=== PATIENT | female | born 1965 | race Caucasian/White ===

== ENCOUNTER 2017-12-07 10:00 | Outpatient (CLI) | payer OTHER ==
[~2017-12-07] VITALS: Ht 165.1 cm; Wt 81.6 kg
[2017-12-07] MEDS ORDERED: LISD30CA3 PO (10:34)
[2017-12-07] MEDS ORDERED: MONT10TA24 PO (10:34)
== END 2017-12-07 13:24 ==
LOC: PREOP 10:00
PROVIDERS: ATTEND Surgery
DX: Z01.818 Encounter for other preprocedural examination (principal); Z12.11 Encounter for screening for malignant neoplasm of colon

== ENCOUNTER 2017-12-14 11:52 | Day surgery (SDC) | payer OTHER ==
[~2017-12-14 11:52] MED LIST: LISD30CA3 PO; MONT10TA24 PO
--- OUTSIDE RECORDS SUMMARY | 2017-12-14 11:55 | XMS REPORT ---
Author Author REGINALD STARR Organization [facility] Address [address] [place] [address] Care Team Providers Care Sales Technician Name Role Phone REGINALD STARR Unavailable PROBLEMS Type Condition ICD9-CM Code [id number] Code Onset Dates Condition Status SNOMED Code Problem ADD (attention deficit disorder) F90.0 Active [id number] ALLERGIES Substance Reaction Event Type Date Status N.K.D.A. Unknown Non Drug Allergy May, Unknown SOCIAL HISTORY No smoking Hx information available PLAN OF CARE Activity Details Follow Up 3 Months, prn Reason: VITAL SIGNS Height 65 in 2016-06-12 Weight 186.4 lbs 2016-06-12 Temperature 98.5 degrees Fahrenheit 2016-06-12 Heart Rate 82 bpm 2016-06-12 Respiratory Rate 20 2016-06-12 BMI 31.02 kg/m2 2016-06-12 Blood pressure systolic 118 mmHg 2016-06-12 Blood pressure diastolic 82 mmHg 2016-06-12 MEDICATIONS Medication Instructions Dosage Frequency Start Date End Date Duration Status Amphetamine-Dextroamphetamine 20 mg Orally 2 times a day TAKE ONE TABLET BY MOUTH AT 8:00AM AND ONE TABLET AT NOON 12h May, 28 days Active ZyrTEC 10 mg take 1 tablet (10 mg) by oral route once daily Oct, Active Xanax 0.25 MG Orally 2 times a day 1 tablet 12h Oct, 10 days Active Adderall XR 30 MG Orally Once a day 1 capsule in the morning 24h May, Active Lisinopril 10 MG Active RESULTS Name Result Date Reference Range [employer] 2016-06-12 PROCEDURES Procedure Date Ordered Related Diagnosis Body Site No Charge Jun 12, 2016 Office Visit, Est Pt., Level 3 Jun 12, 2016 IMMUNIZATIONS No Known Immunizations
--- OUTSIDE RECORDS SUMMARY | 2017-12-14 11:55 | XMS REPORT ---
Author REGINALD Quach [facility] e[employer] Address Unknown Phone Unavailable Care Team Providers Care Licensed Tax Consultant Name Role Phone REGINALD STARR Unavailable Allergies No Known Allergies Problems Problem Type Condition Code Onset Dates Condition Status Problem ADD (attention deficit disorder) F90.0 Active Medications Medication Code System Code Instructions Start Date End Date Status Dosage Amphetamine-Dextroamphetamine [facility] [address]-24 20 mg Orally one in the am and one at noon Dec 25, 2015 1 tablet in the morning Results No Known Results Summary Purpose eClinicalWorks Submission
--- OUTSIDE RECORDS SUMMARY | 2017-12-14 11:55 | XMS REPORT ---
Author Author REGINALD STARR [facility] Address [address] [place] [address] Care Team Providers Care Transit Vehicle Inspector Name Role Phone REGINALD STARR Unavailable PROBLEMS Type Condition ICD9-CM Code [id number] Code Onset Dates Condition Status SNOMED Code Problem ADD (attention deficit disorder) F90.0 Active [id number] ALLERGIES No Information SOCIAL HISTORY Never Assessed PLAN OF CARE VITAL SIGNS MEDICATIONS Medication Instructions Dosage Frequency Start Date End Date Duration Status Adderall XR 30 MG Orally Once a day 1 capsule in the morning 24h September, 28 days Active RESULTS No Results PROCEDURES No Known procedures IMMUNIZATIONS No Known Immunizations MEDICAL (GENERAL) HISTORY Type Description Date Medical History pulmonary embolism 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 (PT will call and inform us with the name) Medical History HIgh blood pressure Surgical History cholecystectomy Surgical History section x2 Surgical History hysterectomy
--- OUTSIDE RECORDS SUMMARY | 2017-12-14 11:55 | XMS REPORT ---
Author Author REGINALD STARR [facility] Address [address] [place] [address] Care Team Providers Care Material Control Supervisor Name Role Phone REGINALD STARR Unavailable PROBLEMS Type Condition ICD9-CM Code [id number] Code Onset Dates Condition Status SNOMED Code Problem ADD (attention deficit disorder) F90.0 Active [id number] ALLERGIES Unknown Allergies SOCIAL HISTORY No smoking Hx information available PLAN OF CARE VITAL SIGNS MEDICATIONS Medication Instructions Dosage Frequency Start Date End Date Duration Status Amphetamine-Dextroamphetamine 20 mg Orally one in the am and one at noon 1 tablet in the morning Dec, Active RESULTS No Results PROCEDURES No Known procedures IMMUNIZATIONS No Known Immunizations
--- OUTSIDE RECORDS SUMMARY | 2017-12-14 11:55 | XMS REPORT ---
Author REGINALD Quach Organization [employer] Address Unknown Phone Unavailable Care Team Providers Care Middleware Consultant Name Role Phone REGINALD STARR Unavailable Allergies No Known Allergies Problems Problem Type Condition Code Onset Dates Condition Status Problem ADD (attention deficit disorder) F90.0 Active Medications Medication Code System Code Instructions Start Date End Date Status Dosage Amphetamine-Dextroamphetamine [facility] [address]-03 20 mg Orally one in the am and one at noon Dec 25, 2015 1 tablet in the morning Xanax [facility] [address]-27 0.25 MG Orally 2 times a day November 17, 2014 1 tablet Results No Known Results Summary Purpose eClinicalWorks Submission
--- OUTSIDE RECORDS SUMMARY | 2017-12-14 11:56 | XMS REPORT ---
Author Author REGINALD STARR [facility] Address [address] [place] [address] Care Team Providers Care Rn Ent Name Role Phone REGINALD STARR Unavailable PROBLEMS Type Condition ICD9-CM Code [id number] Code Onset Dates Condition Status SNOMED Code Problem ADD (attention deficit disorder) F90.0 Active [id number] ALLERGIES No Information SOCIAL HISTORY Never Assessed PLAN OF CARE VITAL SIGNS MEDICATIONS Medication Instructions Dosage Frequency Start Date End Date Duration Status Adderall XR 30 MG Orally Once a day 1 capsule in the morning 24h Jul, 28 days Active RESULTS No Results PROCEDURES [...]
--- OUTSIDE RECORDS SUMMARY | 2017-12-14 11:56 | XMS REPORT ---
Author REGINALD Quach [facility] e[employer] Address Unknown Phone Unavailable Care Team Providers Care Personal Companion Name Role Phone REGINALD STARR CP Unavailable Allergies No Known Allergies Problems Problem Type Condition Code Onset Dates Condition Status Problem ADD (attention deficit disorder) F90.0 Active Medications No Known Medications Results No Known Results Summary Purpose eClinicalWorks Submission
--- OUTSIDE RECORDS SUMMARY | 2017-12-14 11:56 | XMS REPORT ---
Author Author REGINALD STARR [facility] Address [address] [place] [address] Care Team Providers Care Hammer Driver Name Role Phone REGINALD STARR Unavailable PROBLEMS Type Condition ICD9-CM Code [id number] Code Onset Dates Condition Status SNOMED Code Problem ADD (attention deficit disorder) F90.0 Active [id number] ALLERGIES Unknown Allergies SOCIAL HISTORY No smoking Hx information available PLAN OF CARE VITAL SIGNS MEDICATIONS Medication Instructions Dosage Frequency Start Date End Date Duration Status Amphetamine-Dextroamphetamine 20 mg Orally 2 times a day TAKE ONE TABLET BY MOUTH AT 8:00AM AND ONE TABLET AT NOON 12h May, 30 Active RESULTS No Results PROCEDURES No Known procedures IMMUNIZATIONS No Known Immunizations
--- OUTSIDE RECORDS SUMMARY | 2017-12-14 11:57 | XMS REPORT | Continuity of Care Document ---
Author Author [facility] Address Unknown Phone Unavailable Allergies Active Description Code Type Severity Reaction Onset Reported/Identified Relationship to Patient Clinical Status Yes No Known Drug Allergies [id number] Drug Allergy Unknown N/A 03/28/2015 Medications There is no data. Problems Date Dx Coded Attending Type Code Diagnosis Diagnosed By 08/16/2010 461.9 SINUSITIS ACUTE 08/16/2010 477.0 ALLERGIC RHINITIS DUE TO POLLEN 08/16/2010 461.9 SINUSITIS ACUTE 08/16/2010 477.0 ALLERGIC RHINITIS DUE TO POLLEN 08/16/2010 461.9 SINUSITIS ACUTE 08/16/2010 477.0 ALLERGIC RHINITIS DUE TO POLLEN 08/16/2010 461.9 SINUSITIS ACUTE 08/16/2010 477.0 ALLERGIC RHINITIS DUE TO POLLEN 08/16/2010 461.9 SINUSITIS ACUTE 08/16/2010 477.0 ALLERGIC RHINITIS DUE TO POLLEN 08/16/2010 LUIS DO, MODESTA K 461.9 SINUSITIS ACUTE 08/16/2010 LUIS DO, MODESTA K 477.0 ALLERGIC RHINITIS DUE TO POLLEN 08/16/2010 LUIS DO, MODESTA K 461.9 SINUSITIS ACUTE 08/16/2010 LUIS DO, MODESTA K 477.0 ALLERGIC RHINITIS DUE TO POLLEN 08/16/2010 CHRISTIAN INVESTIGATIVE ANALYST, HIRAM R 461.9 SINUSITIS ACUTE 08/16/2010 CHRISTIAN INVESTIGATIVE ANALYST, HIRAM R 477.0 ALLERGIC RHINITIS DUE TO POLLEN 08/16/2010 CHRISTIAN INVESTIGATIVE ANALYST, HIRAM R 461.9 SINUSITIS ACUTE 08/16/2010 CHRISTIAN INVESTIGATIVE ANALYST, HIRAM R 477.0 ALLERGIC RHINITIS DUE TO POLLEN 08/16/2010 CHRISTIAN INVESTIGATIVE ANALYST, HIRAM R 461.9 SINUSITIS ACUTE 08/16/2010 CHRISTIAN INVESTIGATIVE ANALYST, HIRAM R 477.0 ALLERGIC RHINITIS DUE TO POLLEN 08/16/2010 CHRISTIAN INVESTIGATIVE ANALYST, HIRAM R 461.9 SINUSITIS ACUTE 08/16/2010 CHRISTIAN INVESTIGATIVE ANALYST, HIRAM R 477.0 ALLERGIC RHINITIS DUE TO POLLEN 08/16/2010 CHRISTIAN INVESTIGATIVE ANALYST, HIRAM R 461.9 SINUSITIS ACUTE 08/16/2010 CHRISTIAN INVESTIGATIVE ANALYST, HIRAM R 477.0 ALLERGIC RHINITIS DUE TO POLLEN 08/16/2010 JAYSON INVESTIGATIVE ANALYSTCHINMAY ChanNDA S 461.9 SINUSITIS ACUTE 08/16/2010 JAYSON INVESTIGATIVE ANALYST, LIZY S 477.0 ALLERGIC RHINITIS DUE TO POLLEN 04/07/2012 611.72 BREAST LUMP OR MASS 04/07/2012 611.72 BREAST LUMP OR MASS 04/07/2012 611.72 BREAST LUMP OR MASS 04/07/2012 611.72 BREAST LUMP OR MASS 04/07/2012 611.72 BREAST LUMP OR MASS 04/07/2012 LUIS DO, MODESTA K 611.72 BREAST LUMP OR MASS 04/07/2012 LUIS DO, MODESTA K 611.72 BREAST LUMP OR MASS 04/07/2012 CHRISTIAN INVESTIGATIVE ANALYST, HIRAM R 611.72 BREAST LUMP OR MASS 04/07/2012 CHRISTIAN INVESTIGATIVE ANALYST, HIRAM R 611.72 BREAST LUMP OR MASS 04/07/2012 CHRISTIAN INVESTIGATIVE ANALYST, HIRAM R 611.72 BREAST LUMP OR MASS 04/07/2012 CHRISTIAN INVESTIGATIVE ANALYST, HIRAM R 611.72 BREAST LUMP OR MASS 04/07/2012 CHRISTIAN INVESTIGATIVE ANALYST, HIRAM R 611.72 BREAST LUMP OR MASS 04/07/2012 JAYSON INVESTIGATIVE ANALYSTCHINMAY ChanNDA S 611.72 BREAST LUMP OR MASS 05/21/2012 473.9 SINUSITIS ( CHRONIC) 05/21/2012 784.91 POSTNASAL DRIP 05/21/2012 473.9 SINUSITIS ( CHRONIC) 05/21/2012 784.91 POSTNASAL DRIP 05/21/2012 473.9 SINUSITIS ( CHRONIC) 05/21/2012 784.91 POSTNASAL DRIP 05/21/2012 473.9 SINUSITIS ( CHRONIC) 05/21/2012 784.91 POSTNASAL DRIP 05/21/2012 473.9 SINUSITIS ( CHRONIC) 05/21/2012 784.91 POSTNASAL DRIP 05/21/2012 LUIS DO MODESTA K 473.9 SINUSITIS (CHRONIC) 05/21/2012 LUIS DO MODESTA K 784.91 POSTNASAL DRIP 05/21/2012 MODESTA LUIS DO K 473.9 SINUSITIS (CHRONIC) 05/21/2012 MODESTA LUIS DO K 784.91 POSTNASAL DRIP 05/21/2012 CHRISTIAN INVESTIGATIVE ANALYST, HIRAM R 473.9 SINUSITIS (CHRONIC) 05/21/2012 CHRISTIAN INVESTIGATIVE ANALYST, HIRAM R 784.91 POSTNASAL DRIP 05/21/2012 CHRISTIAN INVESTIGATIVE ANALYST, HIRAM R 473.9 SINUSITIS (CHRONIC) 05/21/2012 CHRISTIAN INVESTIGATIVE ANALYST, HIRAM R 784.91 POSTNASAL DRIP 05/21/2012 CHRISTIAN INVESTIGATIVE ANALYST, HIRAM R 473.9 SINUSITIS (CHRONIC) 05/21/2012 CHRISTIAN INVESTIGATIVE ANALYST, HIRAM R 784.91 POSTNASAL DRIP 05/21/2012 CHRISTIAN INVESTIGATIVE ANALYST, HIRAM R 473.9 SINUSITIS (CHRONIC) 05/21/2012 CHRISTIAN INVESTIGATIVE ANALYST, HIRAM R 784.91 POSTNASAL DRIP 05/21/2012 CHRISTIAN INVESTIGATIVE ANALYST, HIRAM R 473.9 SINUSITIS (CHRONIC) 05/21/2012 CHRISTIAN INVESTIGATIVE ANALYST, HIRAM R 784.91 POSTNASAL DRIP 07/13/2012 V19.6 FAMILY HISTORY OF ALLERGIC DISORDERS 07/13/2012 V19.6 FAMILY HISTORY OF ALLERGIC DISORDERS 07/13/2012 V19.6 FAMILY HISTORY OF ALLERGIC DISORDERS 07/13/2012 V19.6 FAMILY HISTORY OF ALLERGIC DISORDERS 07/13/2012 MODESTA LUIS DO K V19.6 FAMILY HISTORY OF ALLERGIC DISORDERS 07/13/2012 MODESTA LUIS DO K V19.6 FAMILY HISTORY OF ALLERGIC DISORDERS 07/13/2012 CHRISTIAN WALLACE HIRAM R V19.6 FAMILY HISTORY OF ALLERGIC DISORDERS 07/13/2012 CHRISTIAN WALLACE, HIRAM R V19.6 FAMILY HISTORY OF ALLERGIC DISORDERS 07/13/2012 CHRISTIAN AMEZCUAN, HIRAM R V19.6 FAMILY HISTORY OF ALLERGIC DISORDERS 07/13/2012 CHRISTIAN WALLACE HIRAM R V19.6 FAMILY HISTORY OF ALLERGIC DISORDERS 07/13/2012 CHRISTIAN WALLACE, HIRAM R V19.6 FAMILY HISTORY OF ALLERGIC DISORDERS 11/12/2012 729.5 PAIN IN LIMB 11/12/2012 729.5 PAIN IN LIMB 11/12/2012 729.5 PAIN IN LIMB 11/12/2012 MODESTA LUIS DO K 729.5 PAIN IN LIMB 11/12/2012 JOSE LUIS DOA K 729.5 PAIN IN LIMB 11/12/2012 CHRISTIAN INVESTIGATIVE ANALYST, HIRAM R 729.5 PAIN IN LIMB 11/12/2012 CHRISTIAN INVESTIGATIVE ANALYST, HIRAM R 729.5 PAIN IN LIMB 11/12/2012 CHRISTIAN INVESTIGATIVE ANALYST, HIRAM R 729.5 PAIN IN LIMB 11/12/2012 CHRISTINA INVESTIGATIVE ANALYST, HIRAM R 729.5 PAIN IN LIMB 11/12/2012 CHRISTIAN INVESTIGATIVE ANALYST, HIRAM R 729.5 PAIN IN LIMB 12/10/2012 729.4 PLANTAR FASCIITIS 12/10/2012 729.4 PLANTAR FASCIITIS 12/10/2012 JOSE LUIS DOA K 729.4 PLANTAR FASCIITIS 12/10/2012 LUIS DO MODESTA K 729.4 PLANTAR FASCIITIS 12/10/2012 CHRISTIAN INVESTIGATIVE ANALYST, HIRAM R 729.4 PLANTAR FASCIITIS 12/10/2012 CHRISTIAN INVESTIGATIVE ANALYST, HIRAM R 729.4 PLANTAR FASCIITIS 12/10/2012 CHRISTIAN INVESTIGATIVE ANALYST HIRAM R 729.4 PLANTAR FASCIITIS 12/10/2012 CHRISTIAN INVESTIGATIVE ANALYST HIRAM R 729.4 PLANTAR FASCIITIS 12/10/2012 CHRISTIAN INVESTIGATIVE ANALYST, HIRAM R 729.4 PLANTAR FASCIITIS 04/12/2013 JOSE LUIS DOA K 719.47 PAIN IN JOINT INVOLVING ANKLE AND FOOT 04/12/2013 JOSE LUIS DOA K 719.47 PAIN IN JOINT INVOLVING ANKLE AND FOOT 04/12/2013 CHRISTIAN INVESTIGATIVE ANALYST HIRAM R 719.47 PAIN IN JOINT INVOLVING ANKLE AND FOOT 04/12/2013 CHRISTIAN INVESTIGATIVE ANALYST HIRAM R 719.47 PAIN IN JOINT INVOLVING ANKLE AND FOOT 04/12/2013 CHRISTIAN INVESTIGATIVE ANALYST HIRAM R 719.47 PAIN IN JOINT INVOLVING ANKLE AND FOOT 04/12/2013 CHRISTIAN INVESTIGATIVE ANALYST HIRAM R 719.47 PAIN IN JOINT INVOLVING ANKLE AND FOOT 04/12/2013 CHRISTIAN INVESTIGATIVE ANALYST HIRAM R 719.47 PAIN IN JOINT INVOLVING ANKLE AND FOOT 05/13/2013 JOSE LUIS DOA K 726.79 TENDONITIS PERONEAL 05/13/2013 JOSE LUIS DOA K 845.03 SPRAIN LAT ANKLE 05/13/2013 CHRISTIAN AMEZCUAN HIRAM R 726.79 TENDONITIS PERONEAL 05/13/2013 CHRISTIAN INVESTIGATIVE ANALYST HIRAM R 845.03 SPRAIN LAT ANKLE 05/13/2013 CHRISTIAN INVESTIGATIVE ANALYST, HIRAM R 726.79 TENDONITIS PERONEAL 05/13/2013 CHRISTIAN INVESTIGATIVE ANALYST, HIRAM R 845.03 SPRAIN LAT ANKLE 05/13/2013 CHRISTIAN INVESTIGATIVE ANALYST, HIRAM R 726.79 TENDONITIS PERONEAL 05/13/2013 CHRISTIAN INVESTIGATIVE ANALYST, HIRAM R 845.03 SPRAIN LAT ANKLE 05/13/2013 CHRISTIAN INVESTIGATIVE ANALYST, HIRAM R 726.79 TENDONITIS PERONEAL 05/13/2013 CHRISTIAN INVESTIGATIVE ANALYST, HIRAM R 845.03 SPRAIN LAT ANKLE 05/13/2013 CHRISTIAN INVESTIGATIVE ANALYST, HIRAM R 726.79 TENDONITIS PERONEAL 05/13/2013 CHRISTIAN INVESTIGATIVE ANALYST, HIRAM R 845.03 SPRAIN LAT ANKLE 06/24/2013 CHRISTIAN INVESTIGATIVE ANALYST, HIRAM R 487.1 INFLUENZA 06/24/2013 CHRISTIAN INVESTIGATIVE ANALYST, HIRAM R 487.1 INFLUENZA 06/24/2013 CHRISTIAN INVESTIGATIVE ANALYST, HIRAM R 487.1 INFLUENZA 06/24/2013 CHRISTIAN INVESTIGATIVE ANALYST, HIRAM R 487.1 INFLUENZA 03/07/2014 CHRISTIAN INVESTIGATIVE ANALYST, HIRAM R 724.2 LUMBAGO/ LOW BACK PAIN 03/07/2014 CHRISTIAN INVESTIGATIVE ANALYST, HIRAM R 786.50 CHEST PAIN 03/07/2014 CHRISTIAN INVESTIGATIVE ANALYST, HIRAM R V12.55 PERSONAL HISTORY OF PULMONARY EMBOLISM 03/19/2015 JORGE NICHOLSON APRN Ot Z12.31 03/21/2015 DOUGIE CLARK MD Ot R92.8 03/22/2015 JORGE NICHOLSON APRN Ot Z12.31 03/22/2015 DOUGIE CLARK MD Ot R92.8 03/26/2015 FRANTZ HICKMAN MD Ot I26.99 03/26/2015 FRANTZ HICKMAN MD Ot R06.09 03/26/2015 FRANTZ HICKMAN MD Ot R07.89 03/26/2015 FRANTZ HICKMAN MD Ot R53.83 04/05/2015 FRANTZ HICKMAN MD Ot I26.99 04/05/2015 FRANTZ HICKMAN MD Ot R06.09 04/05/2015 FRANTZ HICKMAN MD Ot R07.89 04/05/2015 FRANTZ HICKMAN MD Ot R53.83 04/06/2015 LANDEN PA, ASHLYN K Ot I26.99 04/06/2015 LANDEN PA, ASHLYN Sky Ot R06.09 04/06/2015 LANDEN PA, ASHLYN K Ot R07.89 04/06/2015 LANDEN PA, ASHLYN K Ot Z82.3 04/11/2015 MARYLOU PALACIOS, FRANTZ Dang Ot I26.99 04/11/2015 MARYLOU PALACIOS, FRANTZ Dang Ot R06.09 04/11/2015 MARYLOU PALACIOS, FRANTZ Dang Ot R07.89 04/11/2015 MARYLOU PALACIOS, FRANTZ Dang Ot R53.83 04/25/2015 LANDEN PA, ASHLYN K Ot I26.99 04/25/2015 LANDEN PA, ASHLYN Swanson Ot R06.09 04/25/2015 LANDEN PA, ASHLYN Sky Ot R07.89 04/25/2015 LANDEN PA, ASHLYN Swanson Ot Z82.3 05/10/2015 CHRISSY PALACIOS, ROSAURA Ot I26.99 07/15/2015 CHRISSY PALACIOS, ROSAURA Ot I26.99 07/15/2015 CHRISSY PALACIOS, ROSAURA Ot R63.5 ABNORMAL WEIGHT GAIN 07/15/2015 CHRISSY PALACIOS, ROSAURA Ot R79.82 ELEVATED C-REACTIVE PROTEIN (CRP) 07/15/2015 CHRISSY PALACIOS, ROSAURA Ot Z86.711 PERSONAL HISTORY OF PULMONARY EMBOLISM 08/28/2015 JORGE NICHOLSON APRN Ot Z12.31 08/28/2015 DOUGIE CLARK MD Ot R92.8 08/28/2015 MARYLOU PALCAIOS, FRANTZ Dang Ot I26.99 08/28/2015 MARYLOU PALACIOS, FRANTZ Dang Ot R06.09 08/28/2015 MARYLOU PALACIOS, FRANTZ Dang Ot R07.89 08/28/2015 MARYLOU PALACIOS, FRANTZ Dang Ot R53.83 08/28/2015 MARYLOU PALACIOS, FRANTZ Dang Ot I26.99 08/28/2015 MARYLOU PALACIOS, FRANTZ Dang Ot R06.09 08/28/2015 MARYLOU PALACIOS, FRANTZ Dang Ot R07.89 08/28/2015 MARYLOU PALACIOS, FRANTZ Dang Ot R53.83 08/28/2015 LANDEN KNOTT, ASHLYN K Ot I26.99 08/28/2015 KULWANT-BHARAT PA, ASHLYN K Ot R06.09 08/28/2015 KULWANT-BHARAT PA, ASHLYN K Ot R07.89 08/28/2015 BLUM-BHARAT PA, ASHLYN K Ot Z82.3 08/28/2015 CHRISSY PALACIOS, ASHRAFJomarSAMANTHA Ot I26.99 08/31/2015 JORGE NICHOLSON APRN Ot Z12.31 08/31/2015 EDUARDO PALACIOS, DOUGIE Mcnamara Ot R92.8 08/31/2015 MARYLOU PALACIOS, FRANTZ Dang Ot I26.99 08/31/2015 MARYLOU PALACIOS, FRANTZ Dang Ot R06.09 08/31/2015 MARYLOU PALACIOS, FRANTZ J Ot R07.89 08/31/2015 MARYLOU PALACIOS, FRANTZ J Ot R53.83 08/31/2015 MARYLOU PALACIOS, FRANTZ J Ot I26.99 08/31/2015 MARYLOU PALACIOS, FRANTZ Dang Ot R06.09 08/31/2015 MARYLOU PALACIOS, FRANTZ Dang Ot R07.89 08/31/2015 MARYLOU PALACIOS, FRANTZ Dang Ot R53.83 08/31/2015 KULWANT-BHARAT PA, ASHLYN K Ot I26.99 08/31/2015 KULWANT-BHARAT PA, ASHLYN K Ot R06.09 08/31/2015 BLUM-BHARAT PA, ASHLYN K Ot R07.89 08/31/2015 KULWANT-BHARAT PA, ASHLYN K Ot Z82.3 08/31/2015 CHRISSY PALACIOS, ASHRAFGUANACO Ot I26.99 09/03/2015 LAYNE DOCIERRA C Ot N63 09/12/2015 CIERRA LAYNE DO C Ot N63 UNSPECIFIED LUMP IN BREAST 12/31/2016 JORGE NICHOLSON APRN Ot Z12.31 ENCNTR SCREEN MAMMOGRAM FOR MALIGNANT NE 12/31/2016 EDUARDO PALACIOS, DOUGIE Mcnamara Ot R92.8 OTH ABN AND INCONCLUSIVE FINDINGS ON DX 12/31/2016 MARYLOU PALACIOS, FRANTZ Dang Ot I26.99 OTHER PULMONARY EMBOLISM WITHOUT ACUTE C 12/31/2016 FRANTZ HICKMAN MD Ot R06.09 OTHER FORMS OF DYSPNEA 12/31/2016 MARYLOU PALACIOS, FRANTZ Dang Ot R07.89 OTHER CHEST PAIN 12/31/2016 FRANTZ HICKMAN MD Ot R53.83 OTHER FATIGUE 12/31/2016 FRANTZ HICKMAN MD Ot I26.99 OTHER PULMONARY EMBOLISM WITHOUT ACUTE C 12/31/2016 FRANTZ HICKMAN MD Ot R06.09 OTHER FORMS OF DYSPNEA 12/31/2016 FRANTZ HICKMAN MD Ot R07.89 OTHER CHEST PAIN 12/31/2016 FRANTZ HICKMAN MD Ot R53.83 OTHER FATIGUE 12/31/2016 ASHLYN WILKINSON Ot I26.99 OTHER PULMONARY EMBOLISM WITHOUT ACUTE C 12/31/2016 ASHLYN WILKINSON Ot R06.09 OTHER FORMS OF DYSPNEA 12/31/2016 ASHLYN WILKINSON Ot R07.89 OTHER CHEST PAIN 12/31/2016 ASHLYN WILKINSON Ot Z82.3 FAMILY HISTORY OF STROKE 12/31/2016 CIERRA LAYNE DO Ot N63 UNSPECIFIED LUMP IN BREAST 02/03/2017 JORGE NICHOLSON APRN Ot Z12.31 ENCNTR SCREEN MAMMOGRAM FOR MALIGNANT NE 02/03/2017 EDUARDO APLACIOS, DOUGIE Mcnamara Ot R92.8 OTH ABN AND INCONCLUSIVE FINDINGS ON DX 02/03/2017 FRANTZ HICKMAN MD Ot I26.99 OTHER PULMONARY EMBOLISM WITHOUT ACUTE C 02/03/2017 FRANTZ HICKMAN MD Ot R06.09 OTHER FORMS OF DYSPNEA 02/03/2017 FRANTZ HICKMAN MD Ot R07.89 OTHER CHEST PAIN 02/03/2017 FRANTZ HICKMAN MD Ot R53.83 OTHER FATIGUE 02/03/2017 FRANTZ HICKMAN MD Ot I26.99 OTHER PULMONARY EMBOLISM WITHOUT ACUTE C 02/03/2017 FRANTZ HICKMAN MD Ot R06.09 OTHER FORMS OF DYSPNEA 02/03/2017 FRANTZ HICKMAN MD Ot R07.89 OTHER CHEST PAIN 02/03/2017 FRANTZ HICKMAN MD Ot R53.83 OTHER FATIGUE 02/03/2017 ASHLYN WILKINSON Ot I26.99 OTHER PULMONARY EMBOLISM WITHOUT ACUTE C 02/03/2017 ASHLYN WILKINSON Ot R06.09 OTHER FORMS OF DYSPNEA 02/03/2017 ASHLYN WILKINSON Ot R07.89 OTHER CHEST PAIN 02/03/2017 ASHLYN WILKINSON Ot Z82.3 FAMILY HISTORY OF STROKE 02/03/2017 CIERRA LAYNE DO Ot N63 UNSPECIFIED LUMP IN BREAST 02/03/2017 JORGE NICHOLSON R INVESTIGATIVE ANALYST Ot Z12.31 ENCNTR SCREEN MAMMOGRAM FOR MALIGNANT NE 02/03/2017 DOUGIE CLARK MD Ot R92.8 OTH ABN AND INCONCLUSIVE FINDINGS ON DX 02/03/2017 FRANTZ HICKMAN MD Ot I26.99 OTHER PULMONARY EMBOLISM WITHOUT ACUTE C 02/03/2017 FRANTZ HICKMAN MD J Ot R06.09 OTHER FORMS OF DYSPNEA 02/03/2017 FRANTZ HICKMAN MD Ot R07.89 OTHER CHEST PAIN 02/03/2017 FRANTZ HICKMAN MD J Ot R53.83 OTHER FATIGUE 02/03/2017 FRANTZ HICKMAN MD J Ot I26.99 OTHER PULMONARY EMBOLISM WITHOUT ACUTE C 02/03/2017 FRANTZ HICKMAN MD J Ot R06.09 OTHER FORMS OF DYSPNEA 02/03/2017 FRANTZ HICKMAN MD J Ot R07.89 OTHER CHEST PAIN 02/03/2017 FRANTZ HICKMAN MD J Ot R53.83 OTHER FATIGUE 02/03/2017 ASHLYN WILKINSON Ot I26.99 OTHER PULMONARY EMBOLISM WITHOUT ACUTE C 02/03/2017 ASHLYN WILKINSON Ot R06.09 OTHER FORMS OF DYSPNEA 02/03/2017 ASHLYN WILKINSON Ot R07.89 OTHER CHEST PAIN 02/03/2017 ASHLYN WILKINSON Ot Z82.3 FAMILY HISTORY OF STROKE 02/03/2017 CIERRA LAYNE DO C Ot N63 UNSPECIFIED LUMP IN BREAST 02/20/2017 JORGE NICHOLSON R INVESTIGATIVE ANALYST Ot Z12.31 ENCNTR SCREEN MAMMOGRAM FOR MALIGNANT NE 02/20/2017 DOUGIE CLARK MD Ot R92.8 OTH ABN AND INCONCLUSIVE FINDINGS ON DX 02/20/2017 FRANTZ HICKMAN MD Ot I26.99 OTHER PULMONARY EMBOLISM WITHOUT ACUTE C 02/20/2017 FRANTZ HICKMAN MD Ot R06.09 OTHER FORMS OF DYSPNEA 02/20/2017 FRANTZ HICKMAN MD Ot R07.89 OTHER CHEST PAIN 02/20/2017 FRANTZ HICKMAN MD Ot R53.83 OTHER FATIGUE 02/20/2017 FRANTZ HICKMAN MD Ot I26.99 OTHER PULMONARY EMBOLISM WITHOUT ACUTE C 02/20/2017 FRANTZ HICKMAN MD Ot R06.09 OTHER FORMS OF DYSPNEA 02/20/2017 FRANTZ HICKMAN MD Ot R07.89 OTHER CHEST PAIN 02/20/2017 FRANTZ HICKMAN MD Ot R53.83 OTHER FATIGUE 02/20/2017 ASHLYN WILKINSON Ot I26.99 OTHER PULMONARY EMBOLISM WITHOUT ACUTE C 02/20/2017 ASHLYN WILKINSON Ot R06.09 OTHER FORMS OF DYSPNEA 02/20/2017 ASHLYN WILKINSON Ot R07.89 OTHER CHEST PAIN 02/20/2017 ASHLYN WILKINSON Ot Z82.3 FAMILY HISTORY OF STROKE 02/20/2017 CIERRA LAYNE DO Ot N63 UNSPECIFIED LUMP IN BREAST 02/20/2017 JORGE NICHOLSON APRN Ot Z12.31 ENCNTR SCREEN MAMMOGRAM FOR MALIGNANT NE 02/20/2017 EDUARDO PALACIOS, DOUGIE Mcnamara Ot R92.8 OTH ABN AND INCONCLUSIVE FINDINGS ON DX 02/20/2017 FRANTZ HICKMAN MD Ot I26.99 OTHER PULMONARY EMBOLISM WITHOUT ACUTE C 02/20/2017 FRANTZ HICKMAN MD Ot R06.09 OTHER FORMS OF DYSPNEA 02/20/2017 FRANTZ HICKMAN MD Ot R07.89 OTHER CHEST PAIN 02/20/2017 FRANTZ HICKMAN MD Ot R53.83 OTHER FATIGUE 02/20/2017 FRANTZ HICKMAN MD Ot I26.99 OTHER PULMONARY EMBOLISM WITHOUT ACUTE C 02/20/2017 FRANTZ HICKMAN MD Ot R06.09 OTHER FORMS OF DYSPNEA 02/20/2017 FRANTZ HICKMAN MD Ot R07.89 OTHER CHEST PAIN 02/20/2017 FRANTZ HICKMAN MD Ot R53.83 OTHER FATIGUE 02/20/2017 ASHLYN WILKINSON Ot I26.99 OTHER PULMONARY EMBOLISM WITHOUT ACUTE C 02/20/2017 ASHLYN WILKINSON Ot R06.09 OTHER FORMS OF DYSPNEA 02/20/2017 ASHLYN WILKINSON Ot R07.89 OTHER CHEST PAIN 02/20/2017 ASHLYN WILKINSON Ot Z82.3 FAMILY HISTORY OF STROKE 02/20/2017 CIERRA LAYNE DO C Ot N63 UNSPECIFIED LUMP IN BREAST 02/20/2017 JORGE NICHOLSON INVESTIGATIVE ANALYST Ot Z12.31 ENCNTR SCREEN MAMMOGRAM FOR MALIGNANT NE 02/20/2017 DOUGIE CLARK MD Ot R92.8 OTH ABN AND INCONCLUSIVE FINDINGS ON DX 02/20/2017 FRANTZ HICKMAN MD Ot I26.99 OTHER PULMONARY EMBOLISM WITHOUT ACUTE C 02/20/2017 FRANTZ HICKMAN MD J Ot R06.09 OTHER FORMS OF DYSPNEA 02/20/2017 FRANTZ HICKMAN MD Ot R07.89 OTHER CHEST PAIN 02/20/2017 FRANTZ HICKMAN MD J Ot R53.83 OTHER FATIGUE 02/20/2017 FRANTZ HICKMAN MD Ot I26.99 OTHER PULMONARY EMBOLISM WITHOUT ACUTE C 02/20/2017 FRANTZ HICKMAN MD Ot R06.09 OTHER FORMS OF DYSPNEA 02/20/2017 FRANTZ HICKMAN MD J Ot R07.89 OTHER CHEST PAIN 02/20/2017 FRANTZ HICKMAN MD Ot R53.83 OTHER FATIGUE 02/20/2017 ASHLYN WILKINSON Ot I26.99 OTHER PULMONARY EMBOLISM WITHOUT ACUTE C 02/20/2017 ASHLYN WILKINSON Ot R06.09 OTHER FORMS OF DYSPNEA 02/20/2017 ASHLYN WILKINSON Ot R07.89 OTHER CHEST PAIN 02/20/2017 ASHLYN WILKINSON Ot Z82.3 FAMILY HISTORY OF STROKE 02/20/2017 CIERRA LAYNE DO C Ot N63 UNSPECIFIED LUMP IN BREAST 07/23/2017 JORGE NICHOLSON INVESTIGATIVE ANALYST Ot Z12.31 ENCNTR SCREEN MAMMOGRAM FOR MALIGNANT NE 07/23/2017 DOUGIE CLARK MD Ot R92.8 OTH ABN AND INCONCLUSIVE FINDINGS ON DX 07/23/2017 FRANTZ HICKMAN MD Ot I26.99 OTHER PULMONARY EMBOLISM WITHOUT ACUTE C 07/23/2017 FRANTZ HICKMAN MD Ot R06.09 OTHER FORMS OF DYSPNEA 07/23/2017 FRANTZ HICKMAN MD J Ot R07.89 OTHER CHEST PAIN 07/23/2017 FRANTZ HICKMAN MD Ot R53.83 OTHER FATIGUE 07/23/2017 FRANTZ HICKMAN MD Ot I26.99 OTHER PULMONARY EMBOLISM WITHOUT ACUTE C 07/23/2017 FRANTZ HICKMAN MD Ot R06.09 OTHER FORMS OF DYSPNEA 07/23/2017 FRANTZ HICKMAN MD Ot R07.89 OTHER CHEST PAIN 07/23/2017 FRANTZ HICKMAN MD Ot R53.83 OTHER FATIGUE 07/23/2017 ASHLYN WILKINSON Ot I26.99 OTHER PULMONARY EMBOLISM WITHOUT ACUTE C 07/23/2017 ASHLYN WILKINSON Ot R06.09 OTHER FORMS OF DYSPNEA 07/23/2017 ASHLYN WILKINSON Ot R07.89 OTHER CHEST PAIN 07/23/2017 ASHLYN WILKINSON Ot Z82.3 FAMILY HISTORY OF STROKE 07/23/2017 CIERRA LAYNE DO Ot N63 UNSPECIFIED LUMP IN BREAST 11/17/2017 EARNEST MARIA DO Ot Z01.818 ENCOUNTER FOR OTHER PREPROCEDURAL EXAMIN 11/17/2017 EARNEST MARIA DO Ot Z01.818 ENCOUNTER FOR OTHER PREPROCEDURAL EXAMIN 12/07/2017 JORGE NICHOLSON APRN Ot Z12.31 ENCNTR SCREEN MAMMOGRAM FOR MALIGNANT NE 12/07/2017 DOUGIE CLARK MD Ot R92.8 OTH ABN AND INCONCLUSIVE FINDINGS ON DX 12/07/2017 FRANTZ HICKMAN MD Ot I26.99 OTHER PULMONARY EMBOLISM WITHOUT ACUTE C 12/07/2017 FRANTZ HICKMAN MD Ot R06.09 OTHER FORMS OF DYSPNEA 12/07/2017 FRANTZ HICKMAN MD Ot R07.89 OTHER CHEST PAIN 12/07/2017 FRANTZ HICKMAN MD Ot R53.83 OTHER FATIGUE 12/07/2017 FRANTZ HICKMAN MD Ot I26.99 OTHER PULMONARY EMBOLISM WITHOUT ACUTE C 12/07/2017 FRANTZ HICKMAN MD Ot R06.09 OTHER FORMS OF DYSPNEA 12/07/2017 FRANTZ HICKMAN MD Ot R07.89 OTHER CHEST PAIN 12/07/2017 FRANTZ HICKMAN MD Ot R53.83 OTHER FATIGUE 12/07/2017 ASHLYN WILKINSON Ot I26.99 OTHER PULMONARY EMBOLISM WITHOUT ACUTE C 12/07/2017 ASHLYN WILKINSON Ot R06.09 OTHER FORMS OF DYSPNEA 12/07/2017 ASHLYN WILKINSON Ot R07.89 OTHER CHEST PAIN 12/07/2017 ASHLYN WILKINSON Ot Z82.3 FAMILY HISTORY OF STROKE 12/07/2017 CIERRA LAYNE DO Ot N63 UNSPECIFIED LUMP IN BREAST 12/07/2017 EARNEST MARIA DO B Ot Z01.818 ENCOUNTER FOR OTHER PREPROCEDURAL EXAMIN 12/07/2017 CANDACE ALMAGUER EARNEST B Ot Z01.818 ENCOUNTER FOR OTHER PREPROCEDURAL EXAMIN 12/08/2017 EARNEST MARIA DO B Ot Z01.818 ENCOUNTER FOR OTHER PREPROCEDURAL EXAMIN 12/08/2017 CANDACE ALMAGUER EARNEST B Ot Z12.11 ENCOUNTER FOR SCREENING FOR MALIGNANT NE Procedures Code Description Performed By Performed On VINOD CALIX 07/13/2012 24502 XRAY FOOT LEFT 2 VIEWS 11/12/2012 Orthopedi Mark Layne 11/16/2012 Podiatry Bella Ashton 11/16/2012 04981 XRAY FOOT LEFT COMP MIN 3 VIEWS 01/14/2013 L3040 FT ARCH SUPRT PREMOLD LONGIT 01/28/2013 22847 XRAY ANKLE R COMP MIN, 3 VIEWS 04/12/2013 05238 STRAPPING OF ANKLE AND/OR FT 05/13/[address] SINUS W/O CONTRAST 05/19/2013 68209 INFLUENZA A & B (IN-HOUSE) 06/24/2013 56311 XRAY CHEST 2 VIEW 03/07/2014 65181 EKG, TRACING (IN-HOUSE) 03/07/2014 47682 ROUTINE VENIPUNCTURE 03/08/2014 01521 UA W/ CULTURE IF INDICATED 03/08/2014 01886 CBC 03/08/2014 8234960 GFR CALC (RESULT ONLY) 03/08/2014 64441 CMP 03/08/2014 37540 LIPID PANEL 03/08/2014 71185 MAGNESIUM 03/08/2014 70871 TSH 03/08/2014 Results There is no data. Encounters ACCT No. Visit Date/Time Discharge Status Pt. Type Provider Facility Loc./Unit Complaint [id number] 03/08/2014 07:55:00 03/08/2014 23:59:59 CLS Outpatient ROSA GONZALES APRNANTONIA Denney [id number] 10/26/2013 15:57:00 10/26/2013 23:59:59 CLS Outpatient ROSA GONZALES APRNANTONIA Denney [id number] 07/05/2013 16:49:00 07/05/2013 23:59:59 CLS Outpatient ROSA GONZALES APRNANTONIA Denney [id number] 06/24/2013 15:51:00 06/24/2013 23:59:59 CLS Outpatient ROSA GONZALES APRNANTONIA Denney [id number] 05/19/2013 13:23:00 05/19/2013 23:59:59 CLS Outpatient ROSA GONZALES APRNANTONIA Denney [id number] 05/13/2013 08:46:00 05/13/2013 23:59:59 CLS Outpatient MODESTA LUIS DO [id number] 04/12/2013 15:53:00 04/12/2013 23:59:59 CLS Outpatient MODESTA LUIS DO [id number] 07/13/2012 15:34:00 07/13/2012 23:59:59 CLS Outpatient [id number] 05/21/2012 15:23:00 05/21/2012 23:59:59 CLS Outpatient [id number] 04/07/2012 14:38:00 04/07/2012 23:59:59 CLS Outpatient LIZY TYLER APRN [id number] 01/28/2013 09:25:00 Document Registration [id number] 01/14/2013 09:33:00 Document Registration [id number] 11/12/2012 14:51:00 Document Registration [id number] 12/07/2017 10:00:00 12/07/2017 13:24:00 DIS Outpatient EARNEST MARIA DO [facility] PREOP COLONOSCOPY [id number] 11/23/2017 09:40:00 11/23/2017 23:59:59 CLS Preadmit EARNEST MARIA DO [facility] ENDO SCREENING [id number] 01/21/2017 09:43:00 01/21/2017 23:59:59 CLS Preadmit CIERRA LAYNE DO [facility] RAD SCREENING [id number] 08/31/2015 07:56:00 08/31/2015 23:59:59 CLS Outpatient CIERRA LAYNE DO [facility] RAD BREAST LUMP [id number] 07/16/2015 00:08:00 07/16/2015 23:59:59 CLS Preadmit ROSAURA LOWE MD [facility] ONC [id number] 04/16/2015 13:28:00 07/15/2015 00:01:00 DIS Outpatient ROSAURA LOWE MD [facility] ONC [id number] 04/03/2015 13:42:00 04/03/2015 23:59:59 CLS Outpatient ASHLYN WILKINSON [facility] RAD CHEST PAIN, DYSPNEA,FH CVA, [id number] 03/28/2015 07:49:00 03/28/2015 23:59:59 CLS Outpatient FRANTZ HICKMAN MD [facility] CARD DYSPNEA,CP ON EXERTOM [id number] 03/22/2015 13:02:00 03/22/2015 23:59:59 CLS Outpatient FRANTZ HICKMAN MD [facility] CARD CP ON EXERTION,DYSPNEA [id number] 03/06/2015 08:24:00 03/06/2015 23:59:59 CLS Outpatient DOUGIE CLARK MD [facility] RAD ABNORMAL MAMMO [id number] 02/27/2015 08:55:00 02/27/2015 23:59:59 CLS Outpatient JORGE NICHOLSON APRN [facility] RAD SCREENING
[2017-12-14 12:00] VITALS: BP 131/79
[2017-12-14] MEDS ORDERED: LACTATED RINGERS 1,000 ML IV STA (12:09)
[2017-12-14] MEDS ORDERED: LACTATED RINGERS 1,000 ML IV ONE (12:20)
[2017-12-14] MEDS ORDERED: MIDAZOLAM 2 MG/2 ML (VERSED) VIAL ONE (13:09)
[2017-12-14] MEDS ORDERED: proPOfol 200 MG/20 ML (DIPRIVAN) VIAL IV ONE ×2 (13:09→13:37)
--- NOTE | 2017-12-14 13:23 | Progress Note-Pre Operative ---
Pre-Operative Progress Note H&P Reviewed The H&P was reviewed, patient examined and no changes noted. Time Seen by Provider: 13:16 Date H&P Reviewed: Dec 14, 2017 Time H&P Reviewed: 13:18 Pre-Operative Diagnosis: Screening Colonoscopy EARNEST MARIA DO Dec 14, 2017 13:23
[2017-12-14 14:20] VITALS: BP 113/55
[2017-12-14 14:50] VITALS: BP 129/67
[2017-12-14 14:58] VITALS: BP 129/67
--- NOTE | 2017-12-14 15:02 | Progress Note-Post Operative ---
Post-Operative Progess Note Surgeon (s)/Cold Strip Feeder (s) Surgeon EARNEST MARIA DO Cold Strip Feeder: none Pre-Operative Diagnosis Screening Colonoscopy Post-Operative Diagnosis Polyp Internal Hemorrhoids Procedure & Operative Findings Date of Procedure 12/14/17 Procedure Performed/Findings Colon with hot bx Anesthesia Type IV sedation by CELL PHONE REPAIR TECHNICIAN Estimated Blood Loss Estimated blood loss (mL): scant Specimens/Packing Specimens Removed Asc colon polyp EARNEST MARIA DO Dec 14, 2017 15:02
--- NOTE | 2017-12-14 15:04 | Endoscopy Discharge Instruct ---
Endo Procedure/Findings Findings 1.: Polyp 2.: Internal Hemorrhoids Discharge Instructions - Activity: You might feel a little sleepy until tomorrow. This is due to the medicine you received to relax you. Until tomorrow, you should: NOT drive a car, operate machinery or power tools. NOT drink any alcoholic beverages. NOT make any important decisions or sign importortant papers. Do not return to work until tomorrow, unless otherwise instructed. Resume previous activities tomorrow. Diet: Start by taking liquids. If you tolerate liquids, advance to solid food. Make appointment for one week. Notify Physician - If you experience excessive bleeding, unusual abdominal pain, fever, or chest pain, contact your doctor immediately. Follow-Up: - I have received and understand the above instructions and will call my doctor if I have any further questions. Patient Signature Date Nurse Signature Other (Relationship) EARNEST MARIA DO Dec 14, 2017 15:03
--- NOTE | 2017-12-14 23:03 | OPERATIVE REPORT ---
DATE OF SERVICE: 12/14/2017 PREOPERATIVE DIAGNOSIS: Screening colonoscopy POSTOPERATIVE DIAGNOSES: 1. Ascending colon polyp. 2. Internal hemorrhoids. PROCEDURE: Colonoscopy with hot biopsy. SURGEON: Francisco Orona DO COCKTAIL SERVER: None. ANESTHESIA: IV sedation by SURVEY RESEARCH ANALYST. SPECIMEN: Ascending colon polyp. BLOOD LOSS: Scant. FLUIDS: Per anesthesia. POSTOPERATIVE CONDITION: Stable. INDICATIONS FOR PROCEDURE: The patient is a 52-year-old female who has never had a colonoscopy and needs one for screening. FINDINGS: The patient had a small polyp in the ascending colon, biopsied and sent to pathology. She also had some grade I-II internal hemorrhoids. The rest of the colon looked fine. PROCEDURE NOTE: After informed consent was obtained, the patient was brought to the endoscopy suite and placed in the bed in left lateral decubitus position. She was administered IV sedation by the SURVEY RESEARCH ANALYST, who then monitored her vitals the entire time heart rate, blood pressure and pulse ox. The scope was inserted, pushed all the way into about 140 cm, able to get to the cecum, took a picture of the appendiceal orifice, noted the ileocecal valve and able to get into the terminal ileum, took a picture and then slowly withdrew the scope insufflating to look circumferentially at the melo looking at the cecum up the ascending colon and in the ascending colon, I saw a small flat polyp, did a biopsy of this and then continued up to the hepatic flexure, then down the transverse colon, the splenic flexure, then into the descending colon lying down into the sigmoid and into the rectum, retroflexed in the rectal vault, saw some grade I-II internal hemorrhoids, took a picture of this and then removed the scope. The patient tolerated the procedure and she was recovered in the endoscopy suite. Job ID: [id number] DocumentID: [id number] Dictated Date: 12/14/2017 15:42:47 Dev Technical Mgr Date: 12/14/2017 23:02:42 Dictated By: FRANCISCO ORONA DO
== END 2017-12-14 15:15 | disposition home or self-care (01) ==
LOC: ENDO 11:52
PROVIDERS: ATTEND Surgery
DX: Z12.11 Encounter for screening for malignant neoplasm of colon (principal); K63.5 Polyp of colon; K64.1 Second degree hemorrhoids; D68.9 Coagulation defect, unspecified; Z86.711 Personal history of pulmonary embolism; Z79.899 Other long term (current) drug therapy

== ENCOUNTER → 2017-12-18 | Outpatient (CLI) | payer OTHER ==
--- NOTE | 2017-12-21 09:07 | Diagnostic Imaging Report ---
Indication: Routine screening. Comparison made with prior mammograms from 08/31/2015 and 02/27/2015. 2-D and 3-D bilateral screening mammography was performed with CAD. Scattered fibroglandular densities are identified bilaterally. The parenchymal pattern is stable. No dominant mass or malignant appearing microcalcifications are seen. The axilla are unremarkable. Impression: BI-RADS category one No mammographic features suspicious for malignancy are identified. ACR BI-RADS Category 1: Negative. Result letter will be mailed to the patient. Note: At least 10% of breast cancer is not imaged by mammography. Dictated by: Dictated on workstation # [id number]
== END ==
LOC: RAD 13:29
PROVIDERS: ATTEND Obstetrics & Gynecology
DX: Z12.31 Encounter for screening mammogram for malignant neoplasm of breast (principal)
CPT/HCPCS: 77067

== ENCOUNTER 2022-07-16 05:33 | Outpatient (CLI) | payer OTHER ==
[~2022-07-16] VITALS: Ht 162.6 cm; Wt 92.5 kg
[~2022-07-16 05:33] MED LIST changes: +MONT-40 PO; -MONT10TA24 PO
== END 2022-07-21 16:38 | disposition home or self-care (01) ==
LOC: PREOP 05:33
PROVIDERS: ATTEND Surgery
DX: Z01.818 Encounter for other preprocedural examination (principal)

== ENCOUNTER 2022-07-23 07:47 | Day surgery (SDC) | payer OTHER ==
[~2022-07-23] VITALS: Ht 162.6 cm; Wt 92.5 kg
[2022-07-23] VITALS (12 sets, daily range): BP systolic 121–149; BP diastolic 74–87
[2022-07-23] MEDS ORDERED: ceFAZolin INJECTION 2,000 MG in NS (IVPB) 50 ML IV ONE (08:15)
[2022-07-23] MEDS ORDERED: BUP/EPI 0.5% 1:200,000 (SENSORCAINE) 30 ML VIAL ONE (08:40)
[2022-07-23] MEDS ORDERED: proPOfol 200 MG/20 ML (DIPRIVAN) VIAL IV ONE (08:40)
[2022-07-23] MEDS ORDERED: LIDOCAINE PF 2% 5 ML (XYLOCAINE) VIAL ONE (08:40)
[2022-07-23] MEDS ORDERED: fentaNYL INJ 100 MCG/2 ML AMP ONE (08:40)
[2022-07-23] MEDS ORDERED: ROCURONIUM 50 MG/5 ML (ZEMURON) VIAL IV ONE (08:40)
[2022-07-23] MEDS ORDERED: ONDANSETRON 4 MG/2 ML (SDV) Z0FRAN ONE (08:40)
[2022-07-23] MEDS ORDERED: MIDAZOLAM 2 MG/2 ML (VERSED) VIAL ONE ×2 (08:41→08:48)
[2022-07-23] MEDS: LACTATED RINGERS 1,000 ML IV PRN ×2 (08:50→10:03)
[2022-07-23] MEDS ORDERED: AMPH20TA2 PO (09:07)
[2022-07-23] MEDS ORDERED: FLUT9.9S NS (09:07)
[2022-07-23] MEDS ORDERED: PANT40TA52 PO (09:07)
[2022-07-23] MEDS ORDERED: CETI10TA49 PO (09:07)
[2022-07-23] MEDS ORDERED: PRISTIQ PO (09:07)
--- NOTE | 2022-07-23 09:18 | Progress Note-Pre Operative ---
Pre-Operative Progress Note Date H&P Reviewed: Jul 23, 2022 Time H&P Reviewed: 08:39 History & Physical: H&P Reviewed, Patient Examed, No changes noted Pre-Operative Diagnosis: Left breast mass - site marked, Incisional hernia EARNEST MARIA DO Jul 23, 2022 09:18
[2022-07-23] MEDS ORDERED: PHENYLEPHRINE 100 MCG/ML 10 ML (ANESTHESIA) SYR ONE (09:36)
--- NOTE | 2022-07-23 09:57 | Progress Note-Post Operative ---
Post-Operative Progess Note Surgeon (s)/Cardiovascular Invasive Specialist (s) Surgeon EARNEST MARIA DO Cardiovascular Invasive Specialist: none Pre-Operative Diagnosis Left breast mass - site marked Post-Operative Diagnosis Same pending pathology Procedure & Operative Findings Date of Procedure 07/23/22 Procedure Performed/Findings Excision of left breast skin mass, appx 4cm elliptical incision Anesthesia Type GET Estimated Blood Loss Estimated blood loss (mL): scant Specimens/Packing Specimens Removed left breast skin mass EARNEST MARIA DO Jul 23, 2022 09:57
[2022-07-23] MEDS ORDERED: MIDAZOLAM 2 MG/2 ML (VERSED) VIAL IV ONE (10:15)
[2022-07-23] MEDS ORDERED: NEOSTIGMINE (BLOXIVERZ ) 1 MG/1ML 10 ML VIAL ONE (10:32)
[2022-07-23] MEDS ORDERED: GLYCOPYRROLATE 0.2 MG/ML (ROBINUL) 2 ML VIAL ONE (10:32)
--- NOTE | 2022-07-23 10:39 | Progress Note-Post Operative ---
Post-Operative Progess Note Surgeon (s)/Route Manager (s) Surgeon EARNEST MARIA DO Route Manager: Michael Pre-Operative Diagnosis Incisional/Ventral hernia - incarcerated Post-Operative Diagnosis same, scar Procedure & Operative Findings Date of Procedure 07/23/22 Procedure Performed/Findings PROCEDURE: Laparoscopic Incisional/Ventral hernia repair with mesh. COMPLICATIONS: None. INDICATIONS: The patient is a 56, female with an incarcerated incisional/ventral hernia, which has continued to increase in size and cause discomfort. The patient was explained the risk and benefits of the procedure and wished to proceed with the procedure. Consent was signed on the chart. DESCRIPTION OF PROCEDURE: The patient was taken into the operating suite, prepped and draped in sterile fashion. Surgical pause was performed. Local anesthetic was infiltrated in left upper quadrant. A #11 blade scalpel was used to make a small skin incision. Cautery was used to dissect down to the fascia, which was then scored and divided the muscle, went through the posterior sheath and a balloon trocar was inserted into the abdomen. The abdomen was then insufflated. Incarcerated incisional ventral hernia at site was found. An 8mm trocar was placed in the left lower quadrant and another 8mm robotic trocar was placed in left mid abdomen about same height as umbilicus. The defect was then closed using an O Strattafix 9inch with the Robot. The defect was measured at approximately 4cm. Echo Ventralight mesh was then inserted in the abdomen grabbed through the stab incision. The balloon was inflated on the mesh. Circumferential tacks were placed with a SecureStrap Tacker. The balloon was then removed and inner crown was created as well. The mesh was tacked with pressure being decreased. The 12 mm fascial defect was then closed using 0 Vicryl. The abdomen was then desufflated,the trocars were removed. The skin was then closed using 4- 0 Monocryl in a running subcuticular fashion. The abdomen was washed and dried and Skin Affix was placed over the incisions. The patient tolerated procedure well without any complications. She was taken to recovery room in stable condition. Reduced a very large amount of omentum in the hernia; pictures taken. Dr. Rodriguez assisted on this case helping to make incisions, close incisions, identify anatomy and pass/remove suture. Anesthesia Type GET Estimated Blood Loss Estimated blood loss (mL): scant Specimens/Packing Specimens Removed none EARNEST MARIA DO Jul 23, 2022 10:39
[2022-07-23] MEDS ORDERED: ACHD5005 PO (10:41)
--- NOTE | 2022-07-23 10:42 | Discharge Inst-Surgical ---
Discharge Inst-Surgical Depart Medication/Instructions New, Converted or Re-Newed RX: Transmitted to Pharmacy Patient Instructions Follow up Appt: Make appointment for 1 week. [phone] Instructions: No lifting greater than 20 pounds. No strenuous activity. May shower in 24 hours, no tub bath or soaking. Use incentive spirometer at home as directed. No Smoking Skin/Wound Care: May remove bandages in am. You need to leave the Dermabond on incision it will fall off on it's own. Symptoms to Report: Appetite Changes, Extremity Discoloration, Numbness/Tingling, Swelling Increased, Bleeding Excessive, Eyesight Changes, Pain Increased, Urine Color Change, Constipation(Persistent), Fever over 101 degree F, Pain/Pressure in chest, Urinating Difficulty, Cough Up/Vomit Blood, Heart Beat Irreg/Pounding, Pain/Pressure in jaw, Cramps in feet or legs, Lightheadedness, Pain/Pressure in shoulder, Diarrhea(Persistent), Memory Changes Suddenly, Questions/Concerns, Weight gain consecutive days, Dizziness/Fainting, Nausea/Vomiting, Shortness of Breath, Weight gain over 2 pounds If questions or concerns contact your physician Or seek help at emergency department. Activity Activity as Tolerated: Yes Activity Instructions: Avoid Stress to Incision Driving Instructions: No Driving/Refer to Dr. Wyatt Discharge Diet: No Restrictions Diet After 24 Hours: Clear Liquid if Nauseous If Any Problems/Questions/Issu: Contact Your Physician, Go to Emergency Room Skin/Wound Care Infection Signs and Symptoms: Increased Redness, Foul Odor of Wound, Increased Drainage, Skin Itchy or Has a Rash, Increased Swelling, Temperature Above 101 F Wound Care Comment: heating pad to shoulder or neck tonight for pain Bathing Instructions: Shower Stitches/[place]/Dermabond Dis: Dermabond Ice Pack: Ice On and Off Site EARNEST MARIA DO Jul 23, 2022 10:42
[2022-07-23] MEDS ORDERED: SEVOFLURANE (ULTANE) 15 ML INHAL SOLN ONE (10:47)
[2022-07-23] MEDS ORDERED: MEPERIDINE (DEMEROL) INJ 50 MG/ML IVP ONE (11:00)
[2022-07-23] MEDS ORDERED: ONDANSETRON 4 MG/2 ML (SDV) Z0FRAN IVP PRN ×2 (11:00→11:45)
[2022-07-23] MEDS ORDERED: HYDROmorphone 2 MG/ML VIAL (DILAUDID) IV ONE (11:00)
[2022-07-23] MEDS ORDERED: PROMETHAZINE INJ 25 MG/ML (PHENERGAN) AMP IVP ONE (11:00)
[2022-07-23] MEDS ORDERED: morphine INJ 10 MG/ML 1ML (SYR OR VIAL) IVP ONE (11:00)
--- NOTE | 2022-07-23 11:36 | Anesthesia-General Post-Op ---
General Patient Condition Mental Status/LOC: Same as Preop Cardiovascular: Satisfactory Nausea/Vomiting: Absent Respiratory: Satisfactory Pain: Controlled Complications: Absent Post Op Complications Complications None Follow Up Care/Instructions Patient Instructions None needed. Anesthesia/Patient Condition Patient Condition Patient is doing well, no complaints, stable vital signs, no apparent adverse anesthesia problems. No complications reported per nursing. LÓPEZ SALINAS CRNA Jul 23, 2022 11:35
[2022-07-23] MEDS ORDERED: fentaNYL 15 MCG/3 ML NS SYRINGE (PACU) IVP ONE (11:45)
[2022-07-23] MEDS ORDERED: HYDROcodone/APAP 5 MG/325 MG (LORTAB) TAB PO ONE (12:30)
[2022-07-23] MEDS ORDERED: HYDROcodone/APAP 5 MG/325 MG (LORTAB) TAB ONE (12:34)
--- NOTE | 2022-07-23 19:25 | OPERATIVE REPORT ---
DATE OF SERVICE: 07/23/2022 PREOPERATIVE DIAGNOSIS: Left skin and breast mass. POSTOPERATIVE DIAGNOSIS: Left skin and breast mass, pending pathology. PROCEDURE: Excision of left breast skin mass measuring approximately 4 cm. SURGEON: Francisco Orona DO EDGE BURNISHER: None. ANESTHESIA: General endotracheal tube. SPECIMEN: Left breast skin mass. BLOOD LOSS: Scant. FLUIDS:. Per anesthesia. POSTOPERATIVE CONDITION: Stable. INDICATIONS FOR PROCEDURE: The patient is a 56-year-old female who was actually here for a hernia repair, noticed a large mass on her nipple around her areola at about the 3 o'clock position extending down almost to 6 o'clock position and up to about 2-1 o'clock position. She stated the borders were changed, may have changed elevation, possibly even colors and she wanted to get this removed. FINDINGS: The patient had a left breast skin mass removed and sent to pathology. DESCRIPTION OF PROCEDURE: After informed consent was obtained, the patient was brought to the operating room and placed on the table in supine position. She was sterilely prepped and draped in normal fashion. I digna an elliptical incision around this mass going from about 6 o'clock to about 1 o'clock on her areola. This measured about 4 cm long and was probably about almost 2 cm wide. It was an elliptical incision almost more of a quarter escobar incision, infiltrated under this area with local lidocaine and then made an incision with a 15 blade, carried down through the skin into subcutaneous tissue, deepened down to subcutaneous tissue. Bovie electrocautery, removing the specimen en bloc, passed off the table and then irrigated and obtained hemostasis with electrocautery and then elected to close this incision with six interrupted 4-0 undyed Monocryl subcuticular stitches. Area was cleaned and dry. Dressings placed. The patient tolerated the procedure. Sponge and needle count correct at the end of this portion of the case. She then was in the room for the hernia. Job ID: [id number] DocumentID: [id number] Dictated Date: 07/23/2022 16:17:45 Director Physical Date: 07/23/2022 19:22:00 Dictated By: FRANCISCO ROONA DO
== END 2022-07-23 15:20 | disposition home or self-care (01) ==
LOC: SDC 07:47
PROVIDERS: ATTEND Surgery
DX: K43.0 Incisional hernia with obstruction, without gangrene (principal); L82.1 Other seborrheic keratosis; E66.9 Obesity, unspecified; Z68.35 Body mass index [BMI] 35.0-35.9, adult
CPT/HCPCS: 11404; 49594; 87081; C1781; 88305